=== PATIENT | female | born 1980 | race African-American/Black ===

== ENCOUNTER → 2018-07-13 22:16 | Outpatient (CLI) | payer MEDICAID ==
[2018-07-13 23:11] LABS: APPEARANCE CLEAR (CLEAR); BILIRUBIN NEGATIVE (NEGATIVE); COLOR YELLOW (YELLOW); GLUCOSE NEGATIVE (NEGATIVE); KETONE SMALL mg/dL (NEGATIVE); NITRITE NEGATIVE (NEGATIVE); PROTEIN NEGATIVE (NEGATIVE); UROBILINOGEN NORMAL (NORMAL)
== END | disposition home or self-care (01) ==
LOC: D.LDO 22:16
PROVIDERS: Obstetrics & Gynecology
DX: O26.892 Other specified pregnancy related conditions, second trimester (principal); Z3A.26 26 weeks gestation of pregnancy; R10.31 Right lower quadrant pain

== ENCOUNTER → 2018-09-27 16:11 | Outpatient (CLI) | payer MEDICAID ==
[~2018-09-27 16:11] MED LIST: FERROUS SULFAT325 MG PO; IBUPROFEN800 MG PO; PRENAVITE1 TAB PO; TYLENOL W/CODEI1 TAB PO
== END | disposition home or self-care (01) ==
LOC: D.LDO 16:11
DX: O26.893 Other specified pregnancy related conditions, third trimester (principal); Z3A.37 37 weeks gestation of pregnancy

== ENCOUNTER 2018-10-05 19:41 | Outpatient (CLI) | payer MEDICAID ==
[2018-10-06] MEDS ORDERED: PRENAVITE1 TAB PO (06:29)
[2018-10-06] MEDS ORDERED: FERROUS SULFAT325 MG PO (06:30)
== END 2018-10-05 21:10 | disposition home or self-care (01) ==
LOC: D.LDO 19:41
DX: O26.899 Other specified pregnancy related conditions, unspecified trimester (principal); Z3A.00 Weeks of gestation of pregnancy not specified

== ENCOUNTER 2018-10-06 05:26 | Inpatient (IN) | payer MEDICAID ==
[~2018-10-06] VITALS: Ht 160 cm; Wt 73.9 kg
[2018-10-06] MEDS ORDERED: PRENAVITE1 TAB PO (06:29)
[2018-10-06] MEDS ORDERED: FERROUS SULFAT325 MG PO (06:30)
[2018-10-06 06:32] VITALS: BP 132/78; Ht 160 cm; Wt 73.9 kg
[2018-10-06 06:38] LABS: HEMATOCRIT 31.4 % (36.0-48.0); MCH 25.8 pg (26.0-34.0); MCHC 31.8 g/dL (31.0-37.0); MCV 80.9 fL (80.0-100.0); MEAN PLATELET VOLUME 10.4 fL (7.4-10.4); RBC 3.88 10x6/uL (4.00-5.40); RDW 15.2 % (11.5-14.5); WBC 8.4 10x3/uL (4.8-10.8)
[2018-10-06 06:44] LABS: UDS - AMPHET NEGATIVE QUAL (NEGATIVE); UDS - BARB NEGATIVE QUAL (NEGATIVE); UDS - BENZO NEGATIVE QUAL (NEGATIVE); UDS - COCAINE NEGATIVE QUAL (NEGATIVE); UDS - OPIATE NEGATIVE QUAL (NEGATIVE); UDS - PCP NEGATIVE QUAL (NEGATIVE); UDS - THC NEGATIVE QUAL (NEGATIVE)
--- NOTE | 2018-10-06 16:00 | NUR ---
REC'D PT BACK FROM RECOVERY AFTER PP BTL. REPORT REC'D FROM OR RECOVERY NURSE JOLENE FAM. PT SLIGHTLY DROWZY, BUT ABLE TO STATE HER NAME, WHERE SHE IS AND WHAT PROCEDURE SHE HAD. PT TRANSFERED TO RM [id number]. PAIN ASSESSED. PT REPORTS ABD PAIN THAT SHE DESCRIBES "SORENESS" AND RATES DISCOMFORT 7/10. PLAN TO MEDICATE AFTER REVIEWING ORDERS. THIS RN CURRENTLY CARING FOR PT'S INFANT. AND MOM ID BANDS VERIFIED PER PROTOCOL. TRANSPORTED VIA CRIB AT THE SAME TIME MOM TO RM 1257. INFANT TO REMAIN IN OPEN CRIB AT BEDSIDE UNTIL PT HAS FULLY RECOVERED FROM IV PAIN MEDICATION GIVEN IN RECOVERY. PT HAS A PIV TO RT WRIST AREA W/18 GUAGE CATH. SITE WNL. APPROX 500ML NS REMAINING IN EXISTING IV FLUID BAG. LINE PLACED ON PUMP TO INFUSE AT 125ML/HR.PT HAS 1 PUCTURE WOUND TO UMBILICUS W/BANDAID IN PLACE. NO DRAINAGE NOTED. SMALL RUBRA LOCHIA NOTED. APPROX 250ML URINE EMPTIED FROM UROMETER AND DUMPED TO TO DAWSON BAG.TEMP 97.6. COMPLETE ASSESSMENT TO BE DONE BY AM STAFF MEMBER ASSUMING ASSIGNMENT.
--- NOTE | 2018-10-06 16:34 | NUR ---
MOTRIN 800MG PO ADMIN FOR REPORT OF ABD PAIN WITH TEACHING PROVIDED. PT'S ROOM DOES NOT HAVE A TV REMOTE. ENGINEERING CALLED TO REQUEST ONE FOR PT'S ROOM. PT INFORMED OF SUCH AND THE POSSIBILITY THAT SHE MAY BE REMOVED IF REMOTE CAN'T REPLACED THIS PM. PT VERBALIZES UNDERSTANDING AND IS AGREEABLE.
--- NOTE | 2018-10-06 17:30 | NUR ---
TO PT'S ROOM, PT REQUESTS TO GET UP TO WALK AROUND. DAWSON CATH REMOVED WITH 700 ML'S YELLOW URINE. PERICARE DONE WITH WARM WET WASHCLOTHS, PERITOWEL/CHUX CHANGED, WITH PERIPAD ON. IV SALINE LOCKED AT THIS TIME. EXECUTIVE ADVISOR IN ROOM NOW SPEAKING WITH PT. PT STATES SHE WILL GET UP IN A FEW MINUTES. SR UP X 2, CALL LIGHT AND PHONE WITHIN REACH.
[2018-10-06 19:30] VITALS: BP 124/77
--- NOTE | 2018-10-06 19:30 | NUR ---
PT AAOX3, VSS, AFEBRILE, SITTING UPRIGHT IN BED, HOB ELEVATED 45 DEGREES, RESP EVEN AND UNLABORED, REPORTS PAIN 8 OF 10 ON NUMERIC PAIN SCALE REPORTS MOST PAIN UMBILICAL AREA WITH MILD ABD DISTENSION NOTED ALONG WITH MILD PERINEAL DISCOMFORT AND RECTAL PRESSURE. LUNGS CTAB, HEART RRR WITHOUT AUDIBLE MURMUR TO AUSCULATATION, BOWEL SOUNDS PRESENT X4 QUADS, FUNDUS FIRM AT U/1 AND MIDLINE, REPORTS LOCHIA RUBRA SCANT TO LIGHT AMOUNT, DENIES CLOTS, DENIES VOID SINCE DAWSON REMOVED AT 1730 THIS PM, THOMAS FREELY, NO EDEMA NOTED TO B LE, NEGATIVE YOAN'S SIGN B LE. CALL LIGHT IN EASY REACH. TYLENOL #3 ONE TAB PO GIVEN WITH SIPS OF WATER, DERMAPLAST SPRAY PROVIDED, DISCUSSED NEED TO AMBULATE IN HALLS, TCDB, ENCOURAGED PO FLUIDS, AND TO NOTIFY THIS RN ON NEED TO VOID, GOWN AND LINENS TO PT ROOM WHEN PT READY TO SHOWER, PT VISITING WITH FAMILY AT THIS TIME, IN ROOM AT BS, NAD NOTED. CONTINUE TO MONITOR.
--- NOTE | 2018-10-06 20:15 | NUR ---
PAIN REASSESSMENT COMPLETED, PT REPORTS NOW PAIN 1 OR 2 ON NUMERIC PAIN SCALE, PT SMILING, IN ARMS AND WITHOUT DIFFICULTY. DENIES OTHER NEEDS AT THIS TIME. CONTINUE TO MONITOR.
--- NOTE | 2018-10-06 21:13 | NUR ---
ROUNDS COMPLETED, PT OOB PREPARING FOR PM SHOWER PER REQUEST. SALINE LOCK TO RIGHT HAND SECURED AND COVERED WITH GLOVE. STATES PREFERS TO WAIT TO TAKE MOM ORDERED AFTER SHOWER. WILL MONITOR.
--- NOTE | 2018-10-06 21:47 | NUR ---
PT OUT OF SHOWER, ABD DRESSING REMOVED SINCE WET, INCISION CDI WITH DERMABOND, NO REDNESS, SWELLING, OR DRAINAGE NOTED FROM UMBILICAL SITE. DENIES OTHER NEEDS OR CONCERNS, CONTINUE TO MONITOR. CALL LIGHT IN EASY REACH.
--- NOTE | 2018-10-06 22:20 | NUR ---
ROUNDS COMPLETED, PT RESTING WITH EYES CLOSED, RESP EVEN AND UNLABORED. CALL LIGHT IN EASY REACH, NAD NOTED. CONTINUE TO MONITOR.
--- NOTE | 2018-10-06 23:16 | NUR ---
PT C/O UMBILICAL AND ABDOMINAL PAIN, TYLENOL #3 1 TAB PO GIVEN WITH SIPS WATER, ENCOURAGED PT TO GET OOB AMBULATE IN HALLS, KEEP BLADDER EMPTY, AND DRINK PO FLUIDS, ABD MILDLY DISTENDED, INCISION REMAINS CDI WITH DERMABOND AND NO DRAINAGE NOTED. PT STATES UNDERSTANDING OF ALL INSTRUCTIONS GIVEN. HS SNACK TRAY PROVIDED WITH APPLESAUCE. CALL LIGHT IN EASY REACH, WILL MONITOR.
--- NOTE | 2018-10-07 00:37 | NUR ---
ROUNDS COMPLETED. PT CONTINUES TO COMPLAIN OF ABDOMINAL PAIN, STATES "I REALLY THINK I JUST NEED TO HAVE A BOWEL MOVEMENT AND MAYBE GET OUT OF THIS BED." SCHEDULED MOTRIN GIVEN PER MD ORDERS WITH SIPS WATER. NURSING ON PT'S RIGHT BREAST WITHOUT DIFFICULTY. CALL LIGHT IN EASY REACH. CONTINUE TO MONITOR.
--- NOTE | 2018-10-07 01:30 | NUR ---
PT RESTING WITH EYES CLOSED, NAD NOTED. CONTINUE TO MONITOR.
--- NOTE | 2018-10-07 02:39 | NUR ---
PT RESTING WITH EYES CLOSED ON ROUNDS, RESP EVEN AND UNLABORED, CALL LIGHT WITHIN EASY REACH OF PT, SR UP X2, BED IN LOW POSITION, BRAKES LOCKED. CONTINUE TO MONITOR.
--- NOTE | 2018-10-07 04:13 | NUR ---
ROUNDS COMPLETED, INFANT PLACED IN ROLLING CRIB ADJACENT TO PT BED, PT RESP EVEN AND UNLABORED, DENIES NEEDS ON INQUIRY. CALL LIGHT IN EASY REACH, CONTINUE TO MONITOR.
[2018-10-07 06:02] LABS: BASOPHILS 0.1 % (0-2); EOSINOPHILS 0.7 % (0-7); HEMOGLOBIN 9.2 g/dL (12-16); IMMATURE GRANULOCYTES 0.5 % (0-5); LYMPHOCYTES 23.5 % (15-50); MCH 25.7 pg (26.0-34.0); MCHC 31.7 g/dL (31.0-37.0); MEAN PLATELET VOLUME 10.9 fL (7.4-10.4); MONOCYTES 8.3 % (2-11); NEUTROPHILS 66.9 % (40-80); PLATELET COUNT 174 10x3/uL (130-400); RBC 3.58 10x6/uL (4.00-5.40); RDW 14.9 % (11.5-14.5); WBC 8.8 10x3/uL (4.8-10.8)
--- NOTE | 2018-10-07 06:23 | NUR ---
ROUNDS COMPLETED, RESTING WITH EYES CLOSED, RESP EVEN AND UNLABORED, CALL LIGHT IN EASY REACH, INFANT NAD RESP EVEN AND UNLABORED AT PT BEDSIDE IN ROLLING CRIB. CONTINUE TO MONITOR.
[2018-10-07 08:16] LABS: RAPID PLASMA REAGIN Non Reactive (Non Reactive)
[2018-10-07] MEDS ORDERED: TYLENOL W/CODEI1 TAB PO (08:28)
[2018-10-07] MEDS ORDERED: IBUPROFEN800 MG PO (08:28)
[2018-10-07 08:30] VITALS: BP 117/80
--- NOTE | 2018-10-07 08:30 | NUR ---
THIS RN TO ROOM FOR SHIFT ASSESSMENT. PT SITTING UP IN BED, HOLDING . PT AAOx3. PT RATES PAIN 4/10, STATES SHE HAS SOME CRAMPING AFTER AND RECTAL PRESSURE. SHIFT ASSESSMENT, VSS, SEE FLOWSHEET FOR DOC. SALINE LOCK IV TO RIGHT WRIST IS C/D/I, NO REDNESS, SWELLING OR DRAINAGE. FF, ML, U/U. PT ENCOURAGED TO EMPTY BLADDER FREQUENTLY. SMALL RUBRA LOCHIA, NO CLOTS NOTED. ABD INCISION AT UMBILICUS IS C/D WITH DERMABOND INTACT, NO DRAINAGE. INCISION CARE DISCUSSED WITH PT, UNDERSTANDING VERBALIZED. PT REQUESTING IBUPROFEN FOR PAIN AND FRESH ICE WATER, WILL ADMIN ORDERED. PT DENIES FURTHER NEEDS OR CONCERNS. SRUx2, CL IN REACH. IN [place] AT THIS TIME.
--- NOTE | 2018-10-07 08:42 | NUR ---
IBUPROFEN ADMIN ORDERED, FRESH ICE WATER GIVEN. PT DENIES NEEDS. WILL CONT TO MONITOR.
--- NOTE | 2018-10-07 09:10 | NUR ---
DR MIRELES PHONED AND ANTIBIOTIC ORDER DISCUSSED. ORDER RECEIVED TO CANCEL ANTIBIOTIC IT WAS A WRONG PT ENTRY ERROR. WILL PROCEED ORDERED.
--- NOTE | 2018-10-07 10:10 | NUR ---
THIS RN TO ROOM FOR PT CHECK. PT SITTING UP IN BED, INFANT. PT REPORTS DECREASE IN PAIN LEVEL 2/10. PT DENIES NEEDS AT THIS TIME. SRUx2, CL IN REACH. WILL CONT TO MONITOR.
--- NOTE | 2018-10-07 11:58 | NUR ---
THIS RN TO ROOM FOR PT CHECK. PT SITTING UP IN BED . SIG OTHER BRINGING PT JELLO. DISCHARGE TO HOME DISCUSSED WITH PT. IV REMOVED, PRESSURE HELD AND BANDAID APPLIED. PT DENIES NEEDS AT THIS TIME. SRUx2, CL IN REACH. WILL PROCEED WITH DISCHARGE ORDERED.
--- NOTE | 2018-10-07 14:10 | NUR ---
PT GIVEN DISCHARGE INSTRUCTIONS WELL WRITTEN PRESCRIPTION FOR PAIN CONTROL POST D/C TO HOME. PT VERBALIZES UNDERSTANDING AND DENIES QUESTIONS, SIGNS CHART COPIES. PT INSTRUCTED TO CALL OUT MATERIAL CREW SUPERVISOR LIGHT WHEN INFANT IS BUCKLED IN CARSEAT AND READY FOR W/C OUT.
--- NOTE | 2018-10-07 14:25 | NUR ---
PT OFF UNIT VIA W/C TO PRIVATE VEHICLE FOR D/C TO HOME.
== END 2018-10-07 14:25 | disposition home or self-care (01) | DRG 798 ==
LOC: D.LD 05:26
PROVIDERS: ADMIT Obstetrics & Gynecology
PROC: 10E0XZZ Delivery of Products of Conception, External Approach (ICD-10-PCS; 2018-10-06)
PROC: 0UT74ZZ Resection of Bilateral Fallopian Tubes, Percutaneous Endoscopic Approach (ICD-10-PCS; principal; 2018-10-06 12:30)
DX: O75.89 Other specified complications of labor and delivery (principal); Z37.0 Single live birth; Z30.2 Encounter for sterilization; Z3A.38 38 weeks gestation of pregnancy

== ENCOUNTER 2019-06-16 07:14 | Emergency (ER) | payer MEDICAID ==
[2018-10-06 06:32] VITALS: Ht 160 cm; Wt 75.0 kg
[~2019-06-16] VITALS: Ht 160 cm; Wt 75.0 kg
[2019-06-16] MEDS ORDERED: CYCLOBENZAPRINE10 MG PO (07:37)
[2019-06-16] MEDS ORDERED: HYDROCODON-ACE1 EAC7 PO (07:37)
[2019-06-16 07:46] VITALS: BP 132/89
== END 2019-06-16 07:47 | disposition home or self-care (01) ==
LOC: D.ER 07:14
DX: S39.012A Strain of muscle, fascia and tendon of lower back, initial encounter (principal); X50.0XXA Overexertion from strenuous movement or load, initial encounter